=== PATIENT | male | born 1930 | race Caucasian/White ===

== ENCOUNTER 2016-09-23 12:55 | Observation (INO) | payer OTHER ==
[~2016-09-23] VITALS: Ht 175.3 cm; Wt 76.2 kg
[2016-09-23] MEDS ORDERED: SODIUM CHLORIDE 0.9% 1,000 ML IV ONE (13:23)
[2016-09-23 15:02] LABS: CLARITY URINE CLOUDY (CLEAR); COLOR URINE DARK YELLOW (YELLOW); GLUCOSE URINE NEGATIVE (NEGATIVE); KETONES URINE TRACE (NEGATIVE); LEUKOCYTE ESTERASE URINE NEGATIVE (NEGATIVE); NITRITE URINE NEGATIVE (NEGATIVE); OCCULT BLOOD URINE TRACE (NEGATIVE); PROTEIN URINE TRACE (NEGATIVE); SPECIFIC GRAVITY URINE 1.018 (1.005-1.030)
[2016-09-23 15:17] LABS: HEMATOCRIT. 32.5 % (42.0-52.0); HEMOGLOBIN. 10.7 g/dL (14.0-18.0); MEAN CORPUSCULAR HEMOGLOBIN 27.3 pg (28.0-32.0); MEAN CORPUSCULAR VOLUME 82.9 fL (80.0-94.0); MEAN PLATELET VOLUME 10.7 fl (7.4-10.4); PLATELET 133 x1000/uL (130-400); RED BLOOD CELL COUNT 3.92 mill/uL (4.7-6.1); RED CELL DISTRIBUTION WIDTH 15.8 % (11.6-14.6)
[2016-09-23 15:21] LABS: INR 1.1; PROTHROMBIN TIME 11.2 sec
[2016-09-23 15:24] LABS: CARBON DIOXIDE 24 mEq/L (21-32); CHLORIDE 109 mEq/L (98-107)
[2016-09-23 15:25] LABS: ETHANOL BLOOD < 10 mg/dL
[2016-09-23 15:29] LABS: *AMPHETAMINES SCREEN URINE NEGATIVE (NEGATIVE); *BARBITURATES SCREEN URINE NEGATIVE (NEGATIVE); *BENZODIAZEPINES SCREEN URINE NEGATIVE (NEGATIVE); *COCAINE SCREEN URINE NEGATIVE (NEGATIVE); CANNABINOID URINE SCREEN NEGATIVE (NEGATIVE); METHADONE URINE SCREEN NEGATIVE (NEGATIVE); OPIATES URINE SCREEN NEGATIVE (NEGATIVE); PHENCYCLIDINE URINE SCREEN NEGATIVE (NEGATIVE)
[2016-09-23 15:29] LABS: CREATINE KINASE 907 IU/L (39-308); PHOSPHORUS 3.5 mg/dL (2.5-4.9); TROPONIN I 0.13 ng/mL (0.00-0.04)
[2016-09-23] MEDS ORDERED: LACTATED RINGERS 1,000 ML IV STA (15:41)
[2016-09-23] MEDS ORDERED: ASPIRIN 325MG EC TABLET PO ONE (16:00)
[2016-09-23 16:58] LABS: PLATELET ESTIMATE NORMAL
[2016-09-23 17:00] VITALS: BP 154/102
[2016-09-23] MEDS ORDERED: CLONIDINE 0.1MG TABLET PO PRN (17:45)
[2016-09-23] MEDS ORDERED: ACETAMINOPHEN 325MG TABLET PO PRN (17:45)
[2016-09-23 18:00] VITALS: BP 154/102
[2016-09-23 19:20] LABS: CREATINE KINASE MB FRACTION 17.7 ng/mL (0.5-3.6); TROPONIN I 0.16 ng/mL (0.00-0.04)
[2016-09-23 19:30] VITALS: BP 142/100
[2016-09-23 20:00] VITALS: BP 142/100
[2016-09-23] MEDS: SODIUM CHLORIDE 0.45% 1,000 ML IV SCH (23:55)
[2016-09-24] VITALS: BP 114/70
[2016-09-24 03:14] LABS: CREATINE KINASE MB FRACTION 11.2 ng/mL (0.5-3.6); TROPONIN I 0.16 ng/mL (0.00-0.04)
[2016-09-24 04:00] VITALS: BP 117/76
[2016-09-24 08:00] VITALS: BP 126/84
[2016-09-24] MEDS: PANTOPRAZOLE SODIUM 40 MG/VIAL IV SCH (08:22)
[2016-09-24] MEDS: ASPIRIN 81MG TABLET PO SCH (08:22)
[2016-09-24] MEDS: ENOXAPARIN 40MG/0.4ML SYR SUBCUT SCH (08:23)
[2016-09-24] MEDS: SODIUM CHLORIDE 0.45% 1,000 ML IV SCH ×2 (08:23→16:41)
[2016-09-24 08:46] LABS: BASOPHILS % 0.4 % (0.0-2.0); EOSINOPHILS % 0.3 % (0.0-5.0); HEMATOCRIT. 28.5 % (42.0-52.0); HEMOGLOBIN. 9.5 g/dL (14.0-18.0); LYMPHOCYTES % 15.6 % (20.0-50.0); MEAN CORPUSCULAR HEMOGLOBIN 27.5 pg (28.0-32.0); MEAN CORPUSCULAR VOLUME 82.4 fL (80.0-94.0); MEAN PLATELET VOLUME 11.3 fl (7.4-10.4); MONOCYTES % 9.5 % (2.0-8.0); NEUTROPHILS % 74.2 % (40.0-76.0); PLATELET 116 x1000/uL (130-400); RED BLOOD CELL COUNT 3.46 mill/uL (4.7-6.1)
[2016-09-24 08:59] LABS: CARBON DIOXIDE 22 mEq/L (21-32); CHLORIDE 110 mEq/L (98-107)
[2016-09-24 11:41] LABS: TROPONIN I 0.13 ng/mL (0.00-0.04)
[2016-09-24 12:00] VITALS: BP 118/64
[2016-09-24] MEDS ORDERED: MORPHINE SULFATE 4 MG/ML CPJ (NOT FOR IM USE) IV PRN (12:30)
[2016-09-24 15:33] LABS: GLUCOSE URINE NEGATIVE (NEGATIVE); KETONES URINE TRACE (NEGATIVE); LEUKOCYTE ESTERASE URINE 2+ (NEGATIVE); NITRITE URINE POSITIVE (NEGATIVE); OCCULT BLOOD URINE 3+ (NEGATIVE); PH URINE 5.5 (4.5-8.0); PROTEIN URINE 2+ (NEGATIVE); SPECIFIC GRAVITY URINE 1.017 (1.005-1.030)
[2016-09-24 15:39] LABS: CLARITY URINE HAZY (CLEAR); COLOR URINE RED (YELLOW)
[2016-09-24 16:00] VITALS: BP 109/65
[2016-09-24] MEDS ORDERED: LEVOFLOXACIN 750MG PREMIX 150 ML IV SCH (18:00)
[2016-09-24 19:28] LABS: CREATINE KINASE MB FRACTION 17.8 ng/mL (0.5-3.6); TROPONIN I 0.16 ng/mL (0.00-0.04)
[2016-09-24 20:00] VITALS: BP 104/70
[2016-09-25] VITALS: BP 116/65
[2016-09-25 04:00] VITALS: BP 125/67
[2016-09-25] MEDS: SODIUM CHLORIDE 0.45% 1,000 ML IV SCH (04:22)
[2016-09-25 06:36] LABS: CARBON DIOXIDE 24 mEq/L (21-32); CHLORIDE 106 mEq/L (98-107)
[2016-09-25 06:48] LABS: PHOSPHORUS 2.5 mg/dL (2.5-4.9)
[2016-09-25] MEDS: PANTOPRAZOLE SODIUM 40 MG/VIAL IV SCH (08:50)
[2016-09-25 09:02] LABS: BASOPHILS % 0.3 % (0.0-2.0); EOSINOPHILS % 1.4 % (0.0-5.0); HEMATOCRIT. 26.9 % (42.0-52.0); LYMPHOCYTES % 14.7 % (20.0-50.0); MEAN CORPUSCULAR HEMOGLOBIN 27.2 pg (28.0-32.0); MEAN CORPUSCULAR VOLUME 84.2 fL (80.0-94.0); MEAN PLATELET VOLUME 10.7 fl (7.4-10.4); MONOCYTES % 8.2 % (2.0-8.0); NEUTROPHILS % 75.4 % (40.0-76.0); PLATELET 94 x1000/uL (130-400); RED BLOOD CELL COUNT 3.19 mill/uL (4.7-6.1); RED CELL DISTRIBUTION WIDTH 16.5 % (11.6-14.6)
[2016-09-25 09:08] LABS: HEMOGLOBIN. 8.7 g/dL (14.0-18.0)
[2016-09-25 09:14] VITALS: BP 106/68
[2016-09-25] MEDS ORDERED: MAGNESIUM 1 G PREMIX 100 ML IV SCH (11:00)
[2016-09-25] MEDS: ASPIRIN 81MG TABLET PO SCH (11:05)
[2016-09-25] MEDS: ENOXAPARIN 40MG/0.4ML SYR SUBCUT SCH (11:06)
[2016-09-25 11:14] LABS: CREATINE KINASE 714 IU/L (39-308)
[2016-09-25 12:28] VITALS: BP 129/74
[2016-09-25 15:01] VITALS: BP 129/74
[2016-09-25 16:32] VITALS: BP 141/79
[2016-09-25] MEDS ORDERED: LEVOFLOXACIN 500MG PREMIX 100 ML IV SCH (18:00)
[2016-09-26] MEDS ORDERED: FAMOTIDINE 20MG TABLET PO SCH (09:00)
== END 2016-09-25 18:30 ==
LOC: ER 13:24 → INTOOBSV 15:50 → 6WST 15:50 → EDBEDREQ 15:59 → ENRESERV 16:07
PROVIDERS: ADMIT Internal Medicine; ATTEND Internal Medicine
DX: S42.211A Unspecified displaced fracture of surgical neck of right humerus, initial encounter for closed fracture (principal); M62.82 Rhabdomyolysis; N39.0 Urinary tract infection, site not specified; D64.9 Anemia, unspecified; I10 Essential (primary) hypertension; E46 Unspecified protein-calorie malnutrition; R33.9 Retention of urine, unspecified; W19.XXXA Unspecified fall, initial encounter; Y93.89 Activity, other specified; Y92.89 Other specified places as the place of occurrence of the external cause; Y99.8 Other external cause status
CPT/HCPCS: 36415; 70450; 71010; 73030; 73060; 76770; 80053; 80305; 81001; 82248; 82550; 82553; 83605; 83690; 83735; 83880; 84100; 84153; 84484; 85025; 85610; 87086; 93005; 96361; 96365; 96367; 96372; 96375; 96376; 97162; 97760; 99285; A6261; C9113; G0378; G0482; J1650; J1956; J3475; J7120; 80069; 80076; 96360; J7030; A4315

== ENCOUNTER 2017-01-27 17:45 | Inpatient (IN) | payer MEDICARE, MEDICAID ==
[~2017-01-27] VITALS: Ht 175.3 cm; Wt 76.2 kg
[2017-01-27 19:01] LABS: HEMATOCRIT. 28.7 % (42.0-52.0); MEAN CORPUSCULAR HEMOGLOBIN 26.9 pg (28.0-32.0); MEAN PLATELET VOLUME 9.6 fl (7.4-10.4); PLATELET 244 x1000/uL (130-400); RED BLOOD CELL COUNT 3.34 mill/uL (4.7-6.1); RED CELL DISTRIBUTION WIDTH 19.8 % (11.6-14.6)
[2017-01-27 19:03] LABS: CHLORIDE 104 mEq/L (98-107); INR 1.1; PROTHROMBIN TIME 11.8 sec (9.4-11.6)
[2017-01-27 19:17] LABS: CARBON DIOXIDE 17 mEq/L (21-32)
[2017-01-27 19:38] LABS: PLATELET ESTIMATE NORMAL
[2017-01-27] MEDS ORDERED: SODIUM CHLORIDE 0.9% 1000ML BAG (SEPSIS BOLUS) IV ONE (19:45)
[2017-01-27 20:02] LABS: CLARITY URINE CLOUDY (CLEAR); COLOR URINE ORANGE (YELLOW); GLUCOSE URINE NEGATIVE (NEGATIVE); KETONES URINE NEGATIVE (NEGATIVE); LEUKOCYTE ESTERASE URINE 3+ (NEGATIVE); NITRITE URINE NEGATIVE (NEGATIVE); OCCULT BLOOD URINE 3+ (NEGATIVE); PROTEIN URINE 1+ (NEGATIVE); SPECIFIC GRAVITY URINE 1.013 (1.005-1.030)
[2017-01-27] MEDS ORDERED: ACETAMINOPHEN 325MG TABLET PO STA (20:05)
[2017-01-27] MEDS ORDERED: PIPERACILLIN/TAZ 3.375G PREMIX 50 ML IV ONE (20:15)
[2017-01-27] MEDS ORDERED: VANCOMYCIN 1 G PREMIX 200 ML IV ONE (20:15)
[2017-01-27] MEDS ORDERED: SODIUM CHLORIDE 0.9% 1,000 ML IV ONE (21:15)
[2017-01-27] MEDS ORDERED: NOREPINEPHRINE 4 MG in DEXT 5% WATER 246 ML IV ONE (23:00)
[2017-01-27] MEDS ORDERED: NOREPINEPHRINE 4 MG in DEXT 5% WATER 246 ML IV NR (23:15)
[2017-01-28] VITALS (79 sets, daily range): BP systolic 84–136; BP diastolic 49–77
[2017-01-28] MEDS ORDERED: SODIUM CHLORIDE 0.9% 1,000 ML IV SCH (01:11)
[2017-01-28] MEDS ORDERED: NOREPINEPHRINE 4 MG in DEXT 5% WATER 246 ML IV NR (03:45)
[2017-01-28] MEDS ORDERED: ACETAMINOPHEN 650MG/20.3ML UDC PO PRN (04:15)
[2017-01-28] MEDS ORDERED: NOREPINEPHRINE 4 MG in DEXT 5% WATER 246 ML IV PRN (04:15)
[2017-01-28] MEDS ORDERED: ASPI-1159 PO (05:26)
[2017-01-28] MEDS ORDERED: LOV40 SQ (05:26)
[2017-01-28] MEDS ORDERED: MORP2SYR3 IV (05:26)
[2017-01-28] MEDS ORDERED: CLON0.1T PO (05:26)
[2017-01-28] MEDS ORDERED: PANT40VI IV (05:26)
[2017-01-28] MEDS: PIPERACILLIN/TAZ 3.375G PREMIX 50 ML IV SCH ×4 (05:52→23:37)
[2017-01-28] MEDS: SODIUM CHLORIDE 0.9% 1,000 ML IV SCH ×3 (05:52→21:48)
[2017-01-28] MEDS ORDERED: PIPERACILLIN/TAZOBACTAM 3.375GM/50ML PREMIX IV SCH (06:00)
[2017-01-28 06:41] LABS: MEAN CORPUSCULAR HEMOGLOBIN 26.8 pg (28.0-32.0); PLATELET 167 x1000/uL (130-400); RED BLOOD CELL COUNT 2.42 mill/uL (4.7-6.1); RED CELL DISTRIBUTION WIDTH 19.9 % (11.6-14.6)
[2017-01-28 06:59] LABS: HEMOGLOBIN. 6.5 g/dL (14.0-18.0)
[2017-01-28 07:00] LABS: HEMATOCRIT. 20.3 % (42.0-52.0)
[2017-01-28 08:24] LABS: PLATELET ESTIMATE NORMAL
[2017-01-28] MEDS ORDERED: MAGNESIUM 2 G PREMIX 50 ML IV NR (09:30)
[2017-01-28] MEDS: PANTOPRAZOLE SODIUM 40 MG/VIAL IV SCH (09:41)
[2017-01-28] MEDS: VANCOMYCIN 1 G PREMIX 200 ML IV SCH (14:15)
[2017-01-28] MEDS ORDERED: AMIKACIN SULFATE 500 MG in DEXT 5% WATER 100 ML IV SCH (14:30)
[2017-01-28 19:47] LABS: HEMATOCRIT 24.5 % (42.0-52.0)
[2017-01-28] MEDS: MICONAZOLE NITRATE 2% OINT 71GM TOP SCH (21:31)
[2017-01-29] VITALS (75 sets, daily range): BP systolic 92–138; BP diastolic 56–93
[2017-01-29] MEDS ORDERED: AMIKACIN SULFATE 500 MG in DEXT 5% WATER 100 ML IV SCH (03:00)
[2017-01-29] MEDS: PIPERACILLIN/TAZ 3.375G PREMIX 50 ML IV SCH ×2 (05:27→11:53)
[2017-01-29 05:42] LABS: BASOPHILS % 0.2 % (0.0-2.0); EOSINOPHILS % 0.5 % (0.0-5.0); HEMATOCRIT. 25.3 % (42.0-52.0); HEMOGLOBIN. 8.5 g/dL (14.0-18.0); MEAN CORPUSCULAR HEMOGLOBIN 27.8 pg (28.0-32.0); MEAN CORPUSCULAR VOLUME 82.8 fL (80.0-94.0); MEAN PLATELET VOLUME 9.6 fl (7.4-10.4); MONOCYTES % 4.8 % (2.0-8.0); NEUTROPHILS % 84.5 % (40.0-76.0); PLATELET 151 x1000/uL (130-400); RED BLOOD CELL COUNT 3.06 mill/uL (4.7-6.1); RED CELL DISTRIBUTION WIDTH 17.9 % (11.6-14.6)
[2017-01-29 06:00] LABS: CARBON DIOXIDE 22 mEq/L (21-32); CHLORIDE 113 mEq/L (98-107)
[2017-01-29] MEDS: VANCOMYCIN 1 G PREMIX 200 ML IV SCH (08:10)
[2017-01-29] MEDS: SODIUM CHLORIDE 0.9% 1,000 ML IV SCH ×2 (08:10→18:47)
[2017-01-29] MEDS: PANTOPRAZOLE SODIUM 40 MG/VIAL IV SCH (08:10)
[2017-01-29] MEDS: MICONAZOLE NITRATE 2% OINT 71GM TOP SCH ×2 (08:10→21:37)
[2017-01-29] MEDS ORDERED: LIDOCAINE HCL 1% 20ML VIAL (Pyxis) INJ ONE (13:47)
[2017-01-29] MEDS: MEROPENEM 500 MG in SODIUM CHLORIDE 0.9% 50 ML IV SCH ×2 (14:16→21:37)
[2017-01-30] VITALS: BP 115/68
[2017-01-30 04:00] VITALS: BP 131/78
[2017-01-30] MEDS: MEROPENEM 500 MG in SODIUM CHLORIDE 0.9% 50 ML IV SCH ×2 (05:43→13:00)
[2017-01-30 07:57] LABS: BASOPHILS % 0.2 % (0.0-2.0); EOSINOPHILS % 0.8 % (0.0-5.0); HEMATOCRIT. 24.9 % (42.0-52.0); HEMOGLOBIN. 8.1 g/dL (14.0-18.0); LYMPHOCYTES % 14.4 % (20.0-50.0); MEAN CORPUSCULAR HEMOGLOBIN 27.4 pg (28.0-32.0); MEAN CORPUSCULAR VOLUME 83.8 fL (80.0-94.0); MEAN PLATELET VOLUME 9.9 fl (7.4-10.4); MONOCYTES % 6.6 % (2.0-8.0); PLATELET 142 x1000/uL (130-400); RED BLOOD CELL COUNT 2.97 mill/uL (4.7-6.1); RED CELL DISTRIBUTION WIDTH 18.3 % (11.6-14.6)
[2017-01-30 08:00] VITALS: BP 130/79
[2017-01-30 08:14] LABS: CARBON DIOXIDE 21 mEq/L (21-32); CHLORIDE 114 mEq/L (98-107)
[2017-01-30] MEDS: SODIUM CHLORIDE 0.9% 1,000 ML IV SCH (09:00)
[2017-01-30] MEDS: PANTOPRAZOLE SODIUM 40 MG/VIAL IV SCH (09:01)
[2017-01-30] MEDS: MICONAZOLE NITRATE 2% OINT 71GM TOP SCH (09:01)
[2017-01-30 12:00] VITALS: BP 135/81
[2017-01-30 16:00] VITALS: BP 146/82
[2017-01-30 17:57] VITALS: BP 146/82
== END 2017-01-30 20:15 | DRG 871 ==
LOC: ER 18:13 → CVICU 01-28 01:25 → EDBEDREQSVC 01-28 01:32 → 5WST 01-29 22:20
PROVIDERS: ADMIT Internal Medicine; ATTEND Internal Medicine
PROC: 30233N1 Transfusion of Nonautologous Red Blood Cells into Peripheral Vein, Percutaneous Approach (ICD-10-PCS; 2017-01-27)
PROC: 02HV33Z Insertion of Infusion Device into Superior Vena Cava, Percutaneous Approach (ICD-10-PCS; principal; 2017-01-29)
PROC: B548ZZA Ultrasonography of Superior Vena Cava, Guidance (ICD-10-PCS; 2017-01-29)
DX: A41.50 Gram-negative sepsis, unspecified (principal); G93.40 Encephalopathy, unspecified; R65.21 Severe sepsis with septic shock; D64.9 Anemia, unspecified; I10 Essential (primary) hypertension; N40.0 Benign prostatic hyperplasia without lower urinary tract symptoms; Z16.12 Extended spectrum beta lactamase (ESBL) resistance; R31.9 Hematuria, unspecified
CPT/HCPCS: 36415; 36556; 36569; 71010; 74176; 76937; 80048; 80053; 80150; 80202; 81001; 83605; 83735; 85014; 85018; 85025; 85610; 86850; 86900; 86920; 87040; 87077; 87186; 93970; 96365; 96367; 96375; 97162; 97530; 99291; C1725; C9113; J0278; J2185; J2543; J3370; J3475; J3490; J7030; J7040; J7050; J7060; P9016; P9021; A4315